=== PATIENT | female | born 1930 | race African-American/Black ===

== ENCOUNTER 2017-12-16 08:10 | Emergency (ER) | payer MEDICARE, OTHER ==
[~2017-12-16] VITALS: Ht 152.4 cm; Wt 68.0 kg
--- NOTE | 2017-12-16 08:19 | NUR ---
PT TO ED DT DIFFUSED ABDOMINAL PAIN X 3 DAYS. PATIENT IS AWAKE AND ALERT, NO NAUSEA AND VOMITTING,. SKIN IS WARM TO TOUCH AND NON DIAPHORETIC. AFEBRILE. VSS
--- NOTE | 2017-12-16 08:24 | NUR ---
MD BURT AT BEDSIDE.
[2017-12-16 08:56] LABS: BASOPHILS # (AUTO) 0.1 /CMM (0.0-0.2); BASOPHILS % (AUTO) 0.6 % (0.0-2.0); EOSINOPHILS % (AUTO) 0.7 % (0.0-6.0); HEMATOCRIT 45 % (33-45); HEMOGLOBIN 14.6 g/dL (11.5-14.8); LYMPHOCYTES # (AUTO) 1.5 /CMM (0.8-4.8); LYMPHOCYTES % (AUTO) 16.4 % (20.0-44.0); MEAN CORPUSCULAR HEMOGLOBIN 30 PG (26.0-33.0); MEAN CORPUSCULAR HGB CONC 33 g/dl (31.0-36.0); MEAN CORPUSCULAR VOLUME 91 fL (82-100); MONOCYTES # (AUTO) 0.5 /CMM (0.1-1.30); MONOCYTES % (AUTO) 5.5 % (2.0-12.0); NEUTROPHILS # (AUTO) 7.2 /CMM (1.8-8.9); NEUTROPHILS % (AUTO) 76.8 % (43.0-81.0); PLATELET COUNT (AUTO) 251 /CMM (150-450); RDW COEFFICIENT OF VARIATION 13.4 (11.5-15.0); RED BLOOD CELL COUNT(AUTO) 4.92 MIL/uL (4.0-5.2); WHITE BLOOD COUNT (AUTO) 9.3 K/uL (4.3-11.0)
[2017-12-16 08:59] LABS: APPEARANCE,URINE SL CLOUDY (CLEAR); BILIRUBIN,URINE 1+ (NEGATIVE); BLOOD, URINE 1+ Ery/uL (NEGATIVE); COLOR,URINE DARK YELLO (YELLOW); KETONES,URINE 1+ (NEGATIVE); LEUKOCYTE ESTERASE ,URINE 2+ (NEGATIVE); NITRITE, URINE NEGATIVE (NEGATIVE); PROTEIN,URINE 1+ mg/dl (NEGATIVE); UGLUCOSE NEGATIVE (NEGATIVE); UROBILINOGEN,URINE 0.2 EU/dL (0.2)
[2017-12-16] MEDS ORDERED: IV NS 0.9% 500 ML BAG IV ONE (09:00)
--- NOTE | 2017-12-16 09:01 | NUR ---
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
[2017-12-16 09:09] LABS: CARBON DIOXIDE 27 mmol/L (21-32); CHLORIDE 103 mmol/L (98-107); CREATININE 0.9 mg/dL (0.6-1.3); GLUCOSE 120 mg/dL (74-106); SODIUM SERUM 139 mmol/L (136-145); UREA NITROGEN, BLOOD 14 mg/dL (7-18)
[2017-12-16 09:13] LABS: BACTERIA,URINE Moderate /HPF (None Seen); SQUAMOUS EPITHELIAL CELL,UR Few /HPF (None Seen)
[2017-12-16 09:14] LABS: ALANINE AMINOTRANSFERASE 25 U/L (12-78); ALBUMIN 3.7 g/dL (3.4-5.0); ALKALINE PHOSPHATASE 48 U/L (46-116); ASPARTATE AMINOTRANSFERASE 20 U/L (15-37); BILIRUBIN,DIRECT 0.1 mg/dL (0.0-0.2); BILIRUBIN,TOTAL 0.7 mg/dL (0.2-1.0); LIPASE 97 U/L (73-393); TOTAL PROTEIN, SERUM 8.7 g/dL (6.4-8.2)
[2017-12-16 09:16] LABS: TROPONIN I < 0.017 ng/mL (0.00-0.056)
[2017-12-16] MEDS ORDERED: METO-358 PO (10:30)
[2017-12-16] MEDS ORDERED: FURO20TA4 PO (10:30)
[2017-12-16] MEDS ORDERED: ASPI-1169 PO (10:30)
[2017-12-16] MEDS ORDERED: CYCL5.5D EACHEYE (10:30)
[2017-12-16] MEDS ORDERED: OMEP40CA37 PO (10:30)
[2017-12-16] MEDS ORDERED: VITA1TAB56 PO (10:30)
[2017-12-16] MEDS ORDERED: DOCU250C14 PO (10:30)
[2017-12-16] MEDS ORDERED: LORA10TA7 PO (10:31)
[2017-12-16] MEDS ORDERED: ONDANSETRON HCL/PF 4 MG/2 ML VIAL ONE (10:40)
[2017-12-16] MEDS ORDERED: MORPHINE SULFATE INJ 4 MG/ML DISP.SYRIN ONE (10:41)
--- NOTE | 2017-12-16 10:42 | NUR ---
TODD SOLIS AT BEDSIDE.
[2017-12-16] MEDS ORDERED: MORPHINE SULFATE INJ 2 MG/ML DISP.SYRIN IV ONE (11:00)
[2017-12-16] MEDS ORDERED: ONDANSETRON HCL/PF - ER 4 MG/2 ML VIAL IV ONE (11:00)
--- NOTE | 2017-12-16 11:26 | NUR ---
CALLED [facility]IT[facility] FOR READ ON US GALLBLADDER
[2017-12-16 11:39] VITALS: BP 122/85
== END 2017-12-16 11:40 | disposition home or self-care (01) ==
LOC: ER 08:12
DX: K80.10 Calculus of gallbladder with chronic cholecystitis without obstruction (principal); K57.92 Diverticulitis of intestine, part unspecified, without perforation or abscess without bleeding; I48.91 Unspecified atrial fibrillation; I11.0 Hypertensive heart disease with heart failure; I50.9 Heart failure, unspecified; Z79.82 Long term (current) use of aspirin; Z79.899 Other long term (current) drug therapy
CPT/HCPCS: 36415; 71045; 74176; 76705; 80048; 80076; 81001; 83690; 84484; 85025; 87086; 93005; 96374; 96375; 99285; A4606; J2270; J2405; J7040; 81000-TC; Z7610